=== PATIENT | male | born 1985 | race American Indian/Alaskan Native ===

== ENCOUNTER 2018-07-11 12:58 | Emergency (ER) | payer SELFPAY ==
[2018-07-11 13:01] VITALS: RESP 18
--- NOTE | 2018-07-11 13:41 | C.PDOC ---
History Of Present Illness 33 y/o male pt brought to the ER by [facility] police department for evaluation. Pt was arrested yesterday and was thrown to the ground with his face pushed into the ground. Pt c/o periorbital pain and is unsure about LOC. Pt denies headache, dizziness, vision changes and light headedness. Pt is UTD on tetanus vaccination. Time Seen by Provider: 07/11/18 12:59 Chief Complaint (Nursing): Abnormal Skin Integrity History Per: Patient History/Exam Limitations: no limitations Onset/Duration Of Symptoms: Days (x1) Current Symptoms Are (Timing): Still Present Past Medical History Reviewed: Historical Data, Nursing Documentation, Vital Signs Vital Signs: Last Vital Signs Temp 97.9 F 07/11/18 13:00 Pulse 61 07/11/18 13:00 Resp 18 07/11/18 13:00 BP 140/83 07/11/18 13:00 Pulse Ox 96 07/11/18 13:00 Family History: States: No Known Family Hx - Social History Hx Alcohol Use: Yes Hx Substance Use: No - Immunization History Hx Tetanus Toxoid Vaccination: No Hx Influenza Vaccination: No Hx Pneumococcal Vaccination: No Review Of Systems Eyes: Positive for: Other (periorbital pain ) Cardiovascular: Negative for: Light Headedness Neurological: Positive for: Other (unsure LOC; no vision changes ). Negative for: Headache, Dizziness Physical Exam - Physical Exam Appears: Non-toxic, In Acute Distress (uncomfortable ) Skin: Warm, Dry Head: Laceration (1 cm superficial laceration on left upper eyelid ), Other (smal scattered abrasion b/l on periorbital area ) Eye(s): bilateral: PERRL, EOMI, Other (raccoon eyes; no pain with eye movement ) Ear(s): Bilateral: Other ((-) jones signs ) Neck: Normal ROM, No Midline Cervical Tenderness, No Paracervical Tenderness, Supple Cardiovascular: Rhythm Regular Respiratory: Normal Breath Sounds Neurological/Psych: Oriented x3, Normal Speech, Normal Cognition, Normal Motor, Normal Sensation ED Course And Treatment O2 Sat by Pulse Oximetry: 96 (RA) Pulse Ox Interpretation: Normal - CT Scan/US ct head Other Rad Studies (CT/US): Read By Radiologist, Radiology Report Reviewed CT/US Interpretation: Accession No. : [id number]. Patient Name / ID : CARLA SWANN / [id number]. Exam Date : 07/11/2018 14:17:09 ( Approved ). Study Com ment : Sex / Age : M / 33Y. Creator : Karan Rodriguez. Dictator : Kirk Padgett MD. Boiler Reliner : Patrol Guard : Kirk Padgett MD. Approver2 : Report Date : 07/11/2018 14:36:07. My Comment : . This report is currently processing and HAS NOT BEEN OFFICIALLY SIGNED BY THE PHYSICIAN - ESTIMATED TIME OF APPROVAL IS 07/11/2018 15:19. Date of service: 07/11/2018. PROCEDURE: CT HEAD WITHOUT CONTRAST. HISTORY: head injury, r/o bleed. COMPARISON: None available. TECHNIQUE: Axial computed to mography images were obtained through the head/brain without intravenous contrast. Radiation dose: Total exam DLP = 1280.35 mGy-cm. This CT exam was performed using one or more of the following dose reduction techniques: Automated exposure control, adjustment of the mA and/or kV according to patient size, and/or use of iterative reconstruction technique. FINDINGS: HEMORRHAGE: No intracranial hemorrhage. BRAIN: Normal morales-white matter differentiation and density are appreciated throughout the cerebrum and cerebellum with the brainstem appearing unremarkable as well. There is no mass effect. There is no suspicious extra-axial fluid collection and the midline brain anatomy appears diffusely unremarkable. VENTRICLES: Unremarkable. No hydrocephalus. CALVARIUM: No destructive bony lesion or displaced fracture identified including through the skullbase. PARANASAL SINUSES: Unremarkable as visualized. No significant inflammatory changes. MASTOID AIR CELLS: Unremarkable as visualized. No inflammatory changes. OTHER FINDINGS: None. IMPRESSION: Unremarkable unenhanced head CT. Progress Note: Plans: -- scan of head and orbital. -- tyelnol and blood pressure medication was given. -- Medication: vasotec 10 mg and HCTZ 25 mg Disposition Counseled Patient/Family Regarding: Studies Performed, Diagnosis, Need For Followup, Rx Given - Disposition Referrals: [facility] [Outside] [facility] [Outside] Disposition: HOME/ ROUTINE Disposition Time: 15:30 Condition: STABLE Additional Instructions: PATIENT IS MEDICALLY CLEARED FOR INCARCERATION USE ANTIBIOTICS UNTIL FINISHED USE PAIN MEDICATION NEEDED FOLLOW UP WITH MEDICAL CLINIC IN 1-2 DAYS FOLLOW UP WITH DENTIST WITHIN 1 WEEK RETURN TO EMERGENCY ROOM IF YOU HAVE ANY CONCERNING SYMPTOMS Prescriptions: Cephalexin [Keflex] 500 mg PO BID #14 capsule Naproxen 375 mg PO BID PRN #20 tablet PRN Reason: pain Instructions: Closed Head Injury (DC), Cellulitis (Skin Infection), Adult (DC) Forms: [facility] (Irish) Print Language: BELARUSIAN - Clinical Impression Clinical Impression: Facial contusion, Facial cellulitis, Head injury, closed, Apical abscess - Scribe Statement The provider has reviewed the documentation as recorded by the Scriblorraine Eli Do Provider Attestation: All medical record entries made by the Scribe were at my direction and personally dictated by me. I have reviewed the chart and agree that the record accurately reflects my personal performance of the history, physical exam, medical decision making, and the department course for this patient. I have also personally directed, reviewed, and agree with the discharge instructions and disposition.
[2018-07-11 15:01] VITALS: BP 144/71; PULSE 68; TEMP 97.5
[2018-07-11 15:16] VITALS: O2SAT 96
--- NOTE | 2018-07-11 15:17 | CT ---
Date of service: 07/11/2018 PROCEDURE: CT HEAD WITHOUT CONTRAST. HISTORY: head injury, r/o bleed COMPARISON: None available. TECHNIQUE: Axial computed tomography images were obtained through the head/brain without intravenous contrast. Radiation dose: Total exam DLP = 1280.35 mGy-cm. This CT exam was performed using one or more of the following dose reduction techniques: Automated exposure control, adjustment of the mA and/or kV according to patient size, and/or use of iterative reconstruction technique. FINDINGS: HEMORRHAGE: No intracranial hemorrhage. BRAIN: Normal morales-white matter differentiation and density are appreciated throughout the cerebrum and cerebellum with the brainstem appearing unremarkable as well. There is no mass effect. There is no suspicious extra-axial fluid collection and the midline brain anatomy appears diffusely unremarkable. VENTRICLES: Unremarkable. No hydrocephalus. CALVARIUM: No destructive bony lesion or displaced fracture identified including through the skullbase. PARANASAL SINUSES: Unremarkable as visualized. No significant inflammatory changes. MASTOID AIR CELLS: Unremarkable as visualized. No inflammatory changes. OTHER FINDINGS: None. IMPRESSION: Unremarkable unenhanced head CT.
[2018-07-11] MEDS ORDERED: Naproxen 550 mg Tab PO STA (15:24)
--- NOTE | 2018-07-11 15:24 | CT ---
Date of service: 07/11/2018 PROCEDURE: CT MAXILLOFACIAL BONES WITHOUT CONTRAST HISTORY: periorbital swelling, pain, r/o fx COMPARISON: None available. TECHNIQUE: Contiguous axial CT images of the maxillofacial bones were obtained. Coronal and sagittal reformats were generated. Radiation dose: Total exam DLP = 845.69 mGy-cm. This CT exam was performed using one or more of the following dose reduction techniques: Automated exposure control, adjustment of the mA and/or kV according to patient size, and/or use of iterative reconstruction technique. FINDINGS: Generalized thickening of the dermis and subcutaneous fatty reaction of the face diffusely suggests generalized cellulitis of the face without emphysematous soft tissue changes or obvious abscess associated. NASAL BONES: Unremarkable. ORBITS: No fracture or postseptal findings. Dysconjugate gaze appreciated of indeterminate etiology. PARANASAL SINUSES/ MASTOIDS: Polyps or retention cysts bilateral maxillary sinuses, right greater than left. MAXILLA: Unremarkable. MANDIBLE/ TEMPOROMANDIBULAR JOINTS: No fracture identified. A large conjoint periapical abscess is identified involving multiple teeth at the anterior and middle left mandible. SKULL BASE: Unremarkable. TEMPORAL BONES: Middle ears and mastoid grossly unremarkable. OTHER FINDINGS: Mild focal left frontal scalp edema and possible hematoma identified. IMPRESSION: 1. Diffuse facial cellulitis suggested with focal edema/hematoma left frontal scalp. No underlying fracture or destructive bony process appreciable. 2. Dysconjugate gaze of indeterminate origin. 3. Conjoint periapical abscess involving multiple root apices at the anterior to middle left mandible.
[2018-07-11] MEDS ORDERED: Naproxen 550 mg Tab PO ONE (15:37)
== END 2018-07-11 15:37 | disposition home or self-care (01) ==
LOC: C.ER 12:58
DX: S00.83XA Contusion of other part of head, initial encounter (principal); Y35.93XA Legal intervention, means unspecified, suspect injured, initial encounter; L03.211 Cellulitis of face; K04.7 Periapical abscess without sinus